=== PATIENT | female | born 1980 | race Caucasian/White ===

== ENCOUNTER 2020-04-28 15:58 | Inpatient (IN) | payer BC ==
[~2020-04-28] VITALS: Ht 154.9 cm; Wt 92.2 kg
[2020-04-28] VITALS (7 sets, daily range): BP systolic 121–162; BP diastolic 70–90
[2020-04-28] MEDS ORDERED: IODIXANOL 320 MG/ML 100 ML VIAL. IART ONE (16:15)
[2020-04-28] MEDS ORDERED: LIDOCAINE 1% Multi-Dose 20 ML VIAL. INJ ONE (16:15)
[2020-04-28] MEDS ORDERED: fentaNYL PF VIAL 100 MCG/2 ML VIAL IV ONE (16:15)
[2020-04-28] MEDS ORDERED: MIDAZOLAM HCL/PF 2 MG/2 ML VIAL. IV ONE (16:15)
[2020-04-28] MEDS ORDERED: NITROGLYCERIN 200 MCG/2 ML SYRINGE FOR CATH/VASC LAB. ONE ×2 (16:23→16:37)
[2020-04-28] MEDS ORDERED: CONTRAST GIVEN. MC PRN (16:30)
--- NOTE | 2020-04-28 16:37 | PDOC1 ---
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 Dyslipidemia. 2. Prior history of tobacco abuse. 3. Coronary artery disease, status post PCI to the proximal circumflex and proximal RCA in the past. SOCIAL HISTORY: The patient has a daughter and a son. She denies any illicit drug use. FAMILY HISTORY: Notable for coronary artery disease. Cardiovascular: CAD Pulmonary: No pertinent hx GI: No pertinent hx Heme/Onc: No pertinent hx ENT: No pertinent hx Renal/: No pertinent hx Dermatology: No pertinent hx Family History Family History: High Cholestrol Social History Smoke: Quit (QUIT LAST YEAR) ALCOHOL: none Drugs: None Current Medications Current Medications Current Medications Heparin Sodium/ Sodium Chloride (HEPARIN for ARTERIAL LINE FLUSH) 1,000 unit 1X ONCE IART Last administered on 04/28/20at 16:15; Start 04/28/20 at 16:15; Stop 04/28/20 at 16:17; Status DC Heparin Sodium/ Sodium Chloride (HEPARIN for ARTERIAL LINE FLUSH) 1,000 unit 1X ONCE IART Last administered on 04/28/20at 16:15; Start 04/28/20 at 16:15; Stop 04/28/20 at 16:17; Status DC Midazolam HCl (Versed) 2 mg 1X ONCE IV ; Start 04/28/20 at 16:15; Stop 04/28/20 at 16:17; Status DC Fentanyl Citrate (Fentanyl 2ml Vial) 100 mcg 1X ONCE IV ; Start 04/28/20 at 16:15; Stop 04/28/20 at 16:17; Status DC Iodixanol (Visipaque 320) 100 ml 1X ONCE IART ; Start 04/28/20 at 16:15; Stop 04/28/20 at 16:17; Status DC Lidocaine HCl (Lidocaine 1% 20ml Vial) 20 ml 1X ONCE INJ ; Start 04/28/20 at 16:15; Stop 04/28/20 at 16:17; Status DC Info (CONTRAST GIVEN -- Rx MONITORING) 1 each PRN DAILY PRN MC SEE COMMENTS; Start 04/28/20 at 16:30; Stop 04/30/20 at 16:29 Nitroglycerin (Nitroglycerin) 200 mcg STK-MED ONCE .ROUTE ; Start 04/28/20 at 16:23; Stop 04/28/20 at 16:23; Status DC Nitroglycerin (Nitroglycerin) 200 mcg 1X ONCE IART ; Start 04/28/20 at 16:45; Stop 04/28/20 at 16:46 Allergies Allergies: Coded Allergies: No Known Drug Allergies (Unverified , 04/28/20) ROS Review of System 14 pt ros otherwise neg General: No: Chills, Night Sweats, Fatigue, Malaise, Appetite, Other PSYCHOLOGICAL ROS: No: Anxiety, Behavioral Disorder, Concentration difficultie, Decreased libido, Depression, Disorientation, Hallucinations, Hostility, Irritablity, Memory difficulties, Mood Swings, Obsessive thoughts, Physical abus e, Sexual abuse, Sleep disturbances, Suicidal ideation, Other Eyes: No Blurry vision, No Decreased vision, No Double vision, No Dry eyes, No Excessive tearing, No Eye Pain, No Itchy Eyes, No Loss of vision, No Photophobia, No Scotomata, No Uses contacts, No Uses glasses, No Other HEENT: No: Heacaches, Visual Changes, Hearing change, Nasal congestion, Nasal discharge, Oral lesions, Sinus pain, Sore Throat, Epistaxis, Sneezing, Snoring, Tinnitus, Vertigo, Vocal changes, Other ALLERGY AND IMMUNOLOGY: No: Hives, Insect Bite Sensitivity, Itchy/Watery Eyes, Nasal Congestion, Post Nasal Drip, Seasonal Allergies, Other Hematological and Lymphatic: No: Bleeding Problems, Blood Clots, Blood Transfusions, Brusing, Night Sweats, Pallor, Swollen Lymph Nodes, Other ENDOCRINE: No: Breast Changes, Galactorrhea, Hair Pattern Changes, Hot Flashes, Malaise/lethargy, Mood Swings, Palpitations, Polydipsia/polyuria, Skin Changes, Temperature Intolerance, Unexpected Weight Changes, Other Respiratory: No: Cough, Hemoptysis, Orthopnea, Pleuritic Pain, Shortness of breath, SOB with excertion, Sputum Changes, Stridor, Tachypnea, Wheezing, Other Cardiovascular: yes Chest Pain; No Palpitations, No Orthopnea, No Paroxysmal Noc. Dyspnea, No Edema, No Lt Headedness, No Other Gastrointestinal: Yes Nausea; No Vomiting, No Abdominal Pain, No Diarrhea, No Constipation, No Melena, No Hematochezia, No Other Genitourinary: No Dysuria, No Frequency, No Incontinence, No Hematuria, No Retention, No Discharge, No Urgency, No Pain, No Flank Pain, No Other, No , No , No , No , No , No , No Musculoskeletal: No Gait Disturbance, No Joint Pain, No Joint Stiffness, No Joint Swelling, No Muscle Pain, No Muscular Weakness, No Pain In:, No Swelling In:, No Other Neurological: No Behavorial Changes, No Bowel/Bladder ControlChng, No Confusion, No Dizziness, No Gait Disturbance, No Headaches, No Impaired Coor d/balance, No Memory Loss, No Numbness/Tingling, No Seizures, No Speech Problems, No Tremors, No Visual Changes, No Weakness, No Other Skin: No Dry Skin, No Eczema, No Hair Changes, No Lumps, No Mole Changes, No Mottling, No Nail Changes, No Pruritus, No Rash, No Skin Lesion Changes, No Other, No Acne Physical Exam General: Alert, Oriented X3, Cooperative, No acute distress HEENT: Atraumatic, PERRLA, EOMI, Mucous membr. moist/pink Lungs: Clear to auscultation, Normal air movement Heart: RRR, no thrills, no rubs, no gallops Cardiovascular: S1 Breasts: Not examined Abdomen: Normal bowel sounds, Soft, No tenderness, No hepatosplenomegaly Rectal Exam: not examined PELVIC: Examination not indicated Extremities: No clubbing, No cyanosis, No edema Skin: No significant lesion Neuro: Normal speech, Sensation intact, Cranial nerves 3-12 NL Psych/Mental Status: Mental status NL, Mood NL VTE Prophylaxis Ordered VTE Prophylaxis Devices: No VTE Pharmacological Prophylaxi: Yes Assessment/Plan Assessment/Plan IMPRESSION ACUTE STEMI LUCY graft anastomosis to the LAD has a 90% anastomotic stenosis 80% modoc LAD lesion. The LAD is small in caliber, approximately less than 2 mm in size. Left circumflex has a patent stent with moderate 50% disease diffusely. MORBID OBESITY remote tobacco abuse plan admit ICU CARDIOLOGY CONSULT consier [facility] Justicifation of Admission Dx: Justifications for Admission: Justification of Admission Dx: Yes Angina: Symp at Rest [place]: Acute NSTEMI RHODA CHAMPAGNE MD Apr 28, 2020 16:37
[2020-04-28] MEDS ORDERED: NITROGLYCERIN 200 MCG/2 ML SYRINGE FOR CATH/VASC LAB. IART ONE (16:45)
[2020-04-28] MEDS ORDERED: fentaNYL PF VIAL 100 MCG/2 ML VIAL ONE ×2 (17:03→17:14)
[2020-04-28] MEDS ORDERED: MIDAZOLAM HCL/PF 2 MG/2 ML VIAL. ONE (17:14)
[2020-04-28] MEDS ORDERED: LIDOCAINE 1% Multi-Dose 20 ML VIAL. ONE (17:47)
[2020-04-28] MEDS ORDERED: IODIXANOL 320 MG/ML 100 ML VIAL. ONE (17:47)
[2020-04-28] MEDS ORDERED: HEPARIN for ARTERIAL LINE 1,500 ML ONE (17:48)
--- NOTE | 2020-04-28 18:11 | CONS ---
DATE OF CONSULTATION: 04/28/2020 REASON FOR CONSULTATION: ST-elevation myocardial infarction. CONSULTING PHYSICIAN: Dr. Peralta. HISTORY OF PRESENT ILLNESS: The patient is a pleasant 39-year-old woman who presented to [facility] due to worsening chest discomfort. Her initial EKG in the EMS and at the facility revealed a lateral ST elevation with inferior reciprocal depressive changes and due to concern for an acute infarct, she was transferred emergently to the [facility]. Verbal informed consent was obtained from the patient. She was emergently taken to the lab animal technician and diagnostic coronary angiogram and bypass angiography was performed. In speaking with the patient, she apparently had bypass surgery approximately 9 days ago at [facility]. It was a triple vessel bypass. This information was obtained on an emergency basis from the ER clinicians at [facility]. The patient apparently was having some chest discomfort and she took nitroglycerin several weeks ago and then was seen by her primary care physician who had suggested that she be seen in the ER due to her history of a prior MT and recent nitroglycerin use. Ultimately, she stayed at [facility] for approximately a week or so and underwent 3-vessel bypass. She was felt to have vessels too small to be stented. Since discharge from the hospital, she has been doing fairly well up until today's presentation. PAST MEDICAL HISTORY: 1. Dyslipidemia. 2. Prior history of tobacco abuse. 3. Coronary artery disease, status post PCI to the proximal circumflex and proximal RCA in the past. SOCIAL HISTORY: The patient has a daughter and a son. She denies any illicit drug use. FAMILY HISTORY: Notable for coronary artery disease. ALLERGIES: NO KNOWN DRUG ALLERGIES. PHYSICAL EXAMINATION: VITAL SIGNS: Afebrile, heart rate 100, blood pressure 164/87, respirations 18, O2 saturation 95% on 2 liters. GENERAL: She was alert and oriented, in mild distress from a chest pain. HEAD AND NECK: Unremarkable. CARDIAC: Regular rate and rhythm without any obvious murmurs, rubs or gallops. LUNGS: Clear to auscultation anteriorly. SKIN: She had a midline well-healed incision on the chest. ABDOMEN: Soft. EXTREMITIES: 2+ radial and 1+ pedal pulses. NEUROLOGIC: No focal deficits. MUSCULOSKELETAL: No obvious trauma. DIAGNOSTIC STUDIES: EKG demonstrates lateral [address] elevations in I and aVL with [address]-segment depression in II, III and aVF. Coronary angiography demonstrates a patent RCA stent without any significant right coronary artery disease. Left main is a large caliber vessel. LAD has mild luminal irregularities in the proximal and mid segment without any focal stenosis. The LUCY graft anastomosis to the LAD has a 90% anastomotic stenosis and distal to the anastomosis, there is an 80% nome LAD lesion. The LAD is small in caliber, approximately less than 2 mm in size. Left circumflex has a patent stent with moderate 50% disease diffusely. The first obtuse marginal is patent with a vein graft to the first obtuse marginal also being patent with sluggish flow. IMPRESSION: 1. Acute lateral ST segment elevation, likely secondary to first diagonal vein graft occlusion. Although this vein could not be identified on aortography and multiple attempts at engaging it with a catheter. 2. Overall, her coronary anatomy does not appear to have warranted coronary artery bypass surgery at this time, but it is unclear what her anatomy was prior to presentation and previous to her bypass. 3. Hypertension. 4. Dyslipidemia. RECOMMENDATIONS: Continue home aspirin and Plavix. We will continue her heparin drip overnight. Right groin sheath will remain in place in case we need to emergently reassess her for any reason. We will obtain a previous coronary angiography films and make a determination tomorrow whether she would benefit from angioplasty/stent placement of her LAD. This was discussed with the patient and her family. She is in stable, but critical condition. Thank you for this consultation. SKIP PALMER MD DR: ELIGIO/diana JOB#: [id number] / [id number] JOE
[2020-04-28] MEDS ORDERED: METO25TA4 PO (18:16)
[2020-04-28] MEDS ORDERED: CLOP75TA PO (18:16)
[2020-04-28] MEDS ORDERED: AMIO200T4 PO (18:19)
[2020-04-28] MEDS ORDERED: ASPI-630 PO (18:19)
[2020-04-28] MEDS ORDERED: ATOR10TA60 PO (18:19)
[2020-04-28] MEDS ORDERED: HYDR-2763 PO (18:19)
[2020-04-28] MEDS ORDERED: NITROGLYCERIN PREMIX 250 ML IV PRN (19:00)
[2020-04-28] MEDS ORDERED: C.DIFF MED SCREEN BY RX. MC ONE (19:30)
[2020-04-28] MEDS: CYCLOBENZAPRINE 10 MG TABLET. PO PRN (19:40)
[2020-04-28] MEDS: ONDANSETRON PF 4 MG/2 ML VIAL. IVP PRN (19:48)
--- NOTE | 2020-04-28 20:00 | NUR ---
Patient has right femoral arterial line in for potential returned to cardiac lab assistant for intervention. BP documentation will be under vital signs intervention and not arterial line intervention to avoid double charting. Addendum: 04/28/20 at 2302 by SELENA DUONG RN Amended: Links added.
[2020-04-28] MEDS: IV NORMAL SALINE 1000ML BAG 1,000 ML IV SCH (20:16)
[2020-04-28] MEDS ORDERED: ZOLPIDEM 5 MG TABLET. PO PRN (20:30)
[2020-04-28] MEDS ORDERED: 0.9 % SODIUM CHLORIDE 10 ML DISP.SYRIN. IV PRN (20:30)
[2020-04-28] MEDS ORDERED: ACETAMINOPHEN 325 MG TABLET. PO PRN (20:30)
[2020-04-28] MEDS ORDERED: ONDANSETRON PF 4 MG/2 ML VIAL. IV PRN (20:30)
[2020-04-28] MEDS ORDERED: LORazepam 0.5 MG TABLET PO PRN (20:30)
[2020-04-28] MEDS ORDERED: ALBUTEROL SULFATE 2.5 MG/3 ML NEBU. NEB PRN (20:30)
[2020-04-28] MEDS ORDERED: DOCUSATE SODIUM 100 MG CAPSULE. PO PRN (20:30)
[2020-04-28] MEDS ORDERED: guaiFENesin ORAL 200 MG/10 ML LIQUID. PO PRN (20:30)
[2020-04-28] MEDS ORDERED: HEPARIN for IV BOLUS 10,000 UNIT/10 ML VIAL. IV PRN (21:00)
[2020-04-28] MEDS ORDERED: HEPARIN 25,000UTS/250ML PREMIX 250 ML IV PRN (21:00)
[2020-04-28] MEDS ORDERED: ATORVASTATIN CALCIUM 10 MG TABLET. PO SCH (21:00)
[2020-04-28] MEDS ORDERED: PROCHLORPERAZINE 5 MG TABLET. PO PRN (21:30)
[2020-04-28] MEDS: METOPROLOL TART IMMED RELEASE 25 MG TABLET. PO SCH (22:00)
[2020-04-28] MEDS: PROCHLORPERAZINE 10 MG/2 ML VIAL. IV PRN (22:14)
[2020-04-28] MEDS: HYDROcodone/APAP 7.5/325MG 1 TAB TABLET PO PRN (23:47)
[2020-04-29] VITALS (15 sets, daily range): BP systolic 138–169; BP diastolic 76–90
--- NOTE | 2020-04-29 02:46 | NUR ---
Tele monitoring and Nitro gtt being managed by VEE Herron.
[2020-04-29 05:02] LABS: BASO # 0.1 x10^3/uL (0.0-0.2); BASO % 0 % (0-3); EOS # 0.1 x10^3/uL (0.0-0.7); EOS % 0 % (0-3); HEMATOCRIT 29.3 % (36.0-47.0); LYMPH # 1.9 x10^3/uL (1.0-4.8); LYMPH % 13 % (24-48); MEAN CORPUSCULAR HEMOGLOBIN 30 pg (25-35); MEAN CORPUSCULAR HGB CONC 34 g/dL (31-37); MEAN CORPUSCULAR VOLUME 87 fL (79-100); MONO % 7 % (0-9); NEUT # 11.5 x10^3/uL (1.8-7.7); NEUT % 79 % (31-73); PLATELET COUNT 525 x10^3/uL (140-400); RED BLOOD COUNT 3.36 x10^6/uL (3.50-5.40); RED CELL DISTRIBUTION WIDTH 14.4 % (11.5-14.5); WHITE BLOOD COUNT 14.5 x10^3/uL (4.0-11.0)
[2020-04-29 05:19] LABS: ALBUMIN 2.8 g/dL (3.4-5.0); ALBUMIN/GLOBULIN RATIO 0.7 (1.0-1.7); CALCIUM 8.1 mg/dL (8.5-10.1); CREATININE 0.8 mg/dL (0.6-1.0); POTASSIUM 4.1 mmol/L (3.5-5.1); TOTAL BILIRUBIN 0.2 mg/dL (0.2-1.0); TOTAL PROTEIN 6.7 g/dL (6.4-8.2)
[2020-04-29] MEDS: HYDROcodone/APAP 7.5/325MG 1 TAB TABLET PO PRN ×3 (05:38→13:46)
[2020-04-29] MEDS: IV NORMAL SALINE 1000ML BAG 1,000 ML IV SCH (07:39)
[2020-04-29] MEDS ORDERED: CLOPIDOGREL BISULFATE 75 MG TABLET PO SCH (09:00)
[2020-04-29] MEDS ORDERED: ASPIRIN CHEWABLE 81 MG TABLET. PO SCH (09:00)
[2020-04-29] MEDS ORDERED: ENOXAPARIN 40 MG/0.4 ML SYRINGE. SQ SCH (09:00)
[2020-04-29] MEDS ORDERED: AMIODARONE HCL 200 MG TABLET. PO SCH (09:00)
[2020-04-29] MEDS: CYCLOBENZAPRINE 10 MG TABLET. PO PRN (09:22)
[2020-04-29] MEDS: METOPROLOL TART IMMED RELEASE 25 MG TABLET. PO SCH (09:25)
[2020-04-29] MEDS: ONDANSETRON PF 4 MG/2 ML VIAL. IVP PRN (09:28)
--- NOTE | 2020-04-29 10:31 | PDOC ---
PROGRESS NOTES History of Present Illness History of Present Illness DISCHARGE DX Assessment/Plan IMPRESSION ACUTE STEMI LUCY graft anastomosis to the LAD has a 90% anastomotic stenosis 80% platinum LAD lesion. The LAD is small in caliber, approximately less than 2 mm in size. Left circumflex has a patent stent with moderate 50% disease diffusely. MORBID OBESITY remote tobacco abuse plan admit ICU CARDIOLOGY CONSULT consider intervention after review, of prev cath from [facility] transfer TO [facility] CARDIOLOGY TODAY D/C PLANNING 26 MIN d/w rn Vitals Vitals Vital Signs Date Time Temp Pulse Resp B/P (MAP) Pulse Ox O2 Delivery O2 Flow Rate FiO2 04/29/20 10:15 115 22 160/89 (112) 95 Room Air 04/29/20 09:23 2.0 04/29/20 09:00 98.5 98.5 Physical Exam General: Alert, Oriented X3, Cooperative, No acute distress Heart: Regular rate Lungs: Clear Abdomen: Normal bowel sounds, Soft, No tenderness, No hepatosplenomegaly Extremities: No clubbing, No cyanosis, No edema Skin: No significant lesion Labs LABS Laboratory Tests Test 04/28/20 18:50 04/29/20 04:55 Troponin I Quantitative 2.878 ng/mL (0.000-0.055) 9.231 ng/mL (0.000-0.055) White Blood Count 14.5 x10^3/uL (4.0-11.0) Red Blood Count 3.36 x10^6/uL (3.50-5.40) Hemoglobin 10.0 g/dL (12.0-15.5) Hematocrit 29.3 % (36.0-47.0) Mean Corpuscular Volume 87 fL (79-100) Mean Corpuscular Hemoglobin 30 pg (25-35) Mean Corpuscular Hemoglobin Concent 34 g/dL (31-37) Red Cell Distribution Width 14.4 % (11.5-14.5) Platelet Count 525 x10^3/uL (140-400) Neutrophils (%) (Auto) 79 % (31-73) Lymphocytes (%) (Auto) 13 % (24-48) Monocytes (%) (Auto) 7 % (0-9) Eosinophils (%) (Auto) 0 % (0-3) Basophils (%) (Auto) 0 % (0-3) Neutrophils # (Auto) 11.5 x10^3/uL (1.8-7.7) Lymphocytes # (Auto) 1.9 x10^3/uL (1.0-4.8) Monocytes # (Auto) 1.0 x10^3/uL (0.0-1.1) Eosinophils # (Auto) 0.1 x10^3/uL (0.0-0.7) Basophils # (Auto) 0.1 x10^3/uL (0.0-0.2) Heparin Anti-Xa Act, Unfractionated 0.40 IU/mL (0.30-0.70) Sodium Level 136 mmol/L (136-145) Potassium Level 4.1 mmol/L (3.5-5.1) Chloride Level 104 mmol/L (98-107) Carbon Dioxide Level 22 mmol/L (21-32) Anion Gap 10 (6-14) Blood Urea Nitrogen 13 mg/dL (7-20) Creatinine 0.8 mg/dL (0.6-1.0) Estimated GFR (Cockcroft-Gault) 79.0 BUN/Creatinine Ratio 16 (6-20) Glucose Level 126 mg/dL (70-99) Calcium Level 8.1 mg/dL (8.5-10.1) Total Bilirubin 0.2 mg/dL (0.2-1.0) Aspartate Amino Transf (AST/SGOT) 83 U/L (15-37) Alanine Aminotransferase (ALT/SGPT) 8 U/L (14-59) Alkaline Phosphatase 96 U/L (46-116) Total Protein 6.7 g/dL (6.4-8.2) Albumin 2.8 g/dL (3.4-5.0) Albumin/Globulin Ratio 0.7 (1.0-1.7) Comment Review of Relevant I have reviewed the following items lelo (where applicable) has been applied. Labs Laboratory Tests Test 04/28/20 18:50 04/29/20 04:55 Troponin I Quantitative 2.878 ng/mL (0.000-0.055) 9.231 ng/mL (0.000-0.055) White Blood Count 14.5 x10^3/uL (4.0-11.0) Red Blood Count 3.36 x10^6/uL (3.50-5.40) Hemoglobin 10.0 g/dL (12.0-15.5) Hematocrit 29.3 % (36.0-47.0) Mean Corpuscular Volume 87 fL (79-100) Mean Corpuscular Hemoglobin 30 pg (25-35) Mean Corpuscular Hemoglobin Concent 34 g/dL (31-37) Red Cell Distribution Width 14.4 % (11.5-14.5) Platelet Count 525 x10^3/uL (140-400) Neutrophils (%) (Auto) 79 % (31-73) Lymphocytes (%) (Auto) 13 % (24-48) Monocytes (%) (Auto) 7 % (0-9) Eosinophils (%) (Auto) 0 % (0-3) Basophils (%) (Auto) 0 % (0-3) Neutrophils # (Auto) 11.5 x10^3/uL (1.8-7.7) Lymphocytes # (Auto) 1.9 x10^3/uL (1.0-4.8) Monocytes # (Auto) 1.0 x10^3/uL (0.0-1.1) Eosinophils # (Auto) 0.1 x10^3/uL (0.0-0.7) Basophils # (Auto) 0.1 x10^3/uL (0.0-0.2) Heparin Anti-Xa Act, Unfractionated 0.40 IU/mL (0.30-0.70) Sodium Level 136 mmol/L (136-145) Potassium Level 4.1 mmol/L (3.5-5.1) Chloride Level 104 mmol/L (98-107) Carbon Dioxide Level 22 mmol/L (21-32) Anion Gap 10 (6-14) Blood Urea Nitrogen 13 mg/dL (7-20) Creatinine 0.8 mg/dL (0.6-1.0) Estimated GFR (Cockcroft-Gault) 79.0 BUN/Creatinine Ratio 16 (6-20) Glucose Level 126 mg/dL (70-99) Calcium Level 8.1 mg/dL (8.5-10.1) Total Bilirubin 0.2 mg/dL (0.2-1.0) Aspartate Amino Transf (AST/SGOT) 83 U/L (15-37) Alanine Aminotransferase (ALT/SGPT) 8 U/L (14-59) Alkaline Phosphatase 96 U/L (46-116) Total Protein 6.7 g/dL (6.4-8.2) Albumin 2.8 g/dL (3.4-5.0) Albumin/Globulin Ratio 0.7 (1.0-1.7) Laboratory Tests Test 04/28/20 18:50 04/29/20 04:55 Troponin I Quantitative 2.878 ng/mL (0.000-0.055) 9.231 ng/mL (0.000-0.055) White Blood Count 14.5 x10^3/uL (4.0-11.0) Red Blood Count 3.36 x10^6/uL (3.50-5.40) Hemoglobin 10.0 g/dL (12.0-15.5) Hematocrit 29.3 % (36.0-47.0) Mean Corpuscular Volume 87 fL (79-100) Mean Corpuscular Hemoglobin 30 pg (25-35) Mean Corpuscular Hemoglobin Concent 34 g/dL (31-37) Red Cell Distribution Width 14.4 % (11.5-14.5) Platelet Count 525 x10^3/uL (140-400) Neutrophils (%) (Auto) 79 % (31-73) Lymphocytes (%) (Auto) 13 % (24-48) Monocytes (%) (Auto) 7 % (0-9) Eosinophils (%) (Auto) 0 % (0-3) Basophils (%) (Auto) 0 % (0-3) Neutrophils # (Auto) 11.5 x10^3/uL (1.8-7.7) Lymphocytes # (Auto) 1.9 x10^3/uL (1.0-4.8) Monocytes # (Auto) 1.0 x10^3/uL (0.0-1.1) Eosinophils # (Auto) 0.1 x10^3/uL (0.0-0.7) Basophils # (Auto) 0.1 x10^3/uL (0.0-0.2) Heparin Anti-Xa Act, Unfractionated 0.40 IU/mL (0.30-0.70) Sodium Level 136 mmol/L (136-145) Potassium Level 4.1 mmol/L (3.5-5.1) Chloride Level 104 mmol/L (98-107) Carbon Dioxide Level 22 mmol/L (21-32) Anion Gap 10 (6-14) Blood Urea Nitrogen 13 mg/dL (7-20) Creatinine 0.8 mg/dL (0.6-1.0) Estimated GFR (Cockcroft-Gault) 79.0 BUN/Creatinine Ratio 16 (6-20) Glucose Level 126 mg/dL (70-99) Calcium Level 8.1 mg/dL (8.5-10.1) Total Bilirubin 0.2 mg/dL (0.2-1.0) Aspartate Amino Transf (AST/SGOT) 83 U/L (15-37) Alanine Aminotransferase (ALT/SGPT) 8 U/L (14-59) Alkaline Phosphatase 96 U/L (46-116) Total Protein 6.7 g/dL (6.4-8.2) Albumin 2.8 g/dL (3.4-5.0) Albumin/Globulin Ratio 0.7 (1.0-1.7) Medications Current Medications Heparin Sodium/ Sodium Chloride (HEPARIN for ARTERIAL LINE FLUSH) 1,000 unit 1X ONCE IART Last administered on 04/28/20at 16:15; Start 04/28/20 at 16:15; Stop 04/28/20 at 16:17; Status DC Heparin Sodium/ Sodium Chloride (HEPARIN for ARTERIAL LINE FLUSH) 1,000 unit 1X ONCE IART Last administered on 04/28/20at 16:15; Start 04/28/20 at 16:15; Stop 04/28/20 at 16:17; Status DC Midazolam HCl (Versed) 2 mg 1X ONCE IV Last administered on 04/28/20at 16:06; Start 04/28/20 at 16:15; Stop 04/28/20 at 16:17; Status DC Fentanyl Citrate (Fentanyl 2ml Vial) 100 mcg 1X ONCE IV Last administered on 04/28/20at 16:06; Start 04/28/20 at 16:15; Stop 04/28/20 at 16:17; Status DC Iodixanol (Visipaque 320) 100 ml 1X ONCE IART Last administered on 04/28/20at 16:55; Start 04/28/20 at 16:15; Stop 04/28/20 at 16:17; Status DC Lidocaine HCl (Lidocaine 1% 20ml Vial) 20 ml 1X ONCE INJ Last administered on 04/28/20at 16:15; Start 04/28/20 at 16:15; Stop 04/28/20 at 16:17; Status DC Info (CONTRAST GIVEN -- Rx MONITORING) 1 each PRN DAILY PRN MC SEE COMMENTS; Start 04/28/20 at 16:30; Stop 04/30/20 at 16:29 Nitroglycerin (Nitroglycerin) 200 mcg STK-MED ONCE .ROUTE ; Start 04/28/20 at 16:23; Stop 04/28/20 at 16:23; Status DC Nitroglycerin (Nitroglycerin) 200 mcg 1X ONCE IART Last administered on 04/28/20at 16:45; Start 04/28/20 at 16:45; Stop 04/28/20 at 16:46; Status DC Nitroglycerin (Nitroglycerin) 200 mcg STK-MED ONCE .ROUTE ; Start 04/28/20 at 16:37; Stop 04/28/20 at 16:37; Status DC Fentanyl Citrate (Fentanyl 2ml Vial) 100 mcg STK-MED ONCE .ROUTE ; Start 04/28/20 at 17:03; Stop 04/28/20 at 17:04; Status DC Fentanyl Citrate (Fentanyl 2ml Vial) 100 mcg STK-MED ONCE .ROUTE ; Start 04/28/20 at 17:14; Stop 04/28/20 at 17:14; Status DC Midazolam HCl (Versed) 2 mg STK-MED ONCE .ROUTE ; Start 04/28/20 at 17:14; Stop 04/28/20 at 17:14; Status DC Iodixanol (Visipaque 320) 100 ml STK-MED ONCE .ROUTE ; Start 04/28/20 at 17:47; Stop 04/28/20 at 17:48; Status DC Lidocaine HCl (Lidocaine 1% 20ml Vial) 20 ml STK-MED ONCE .ROUTE ; Start 04/28 at 17:47; Stop 04/28/20 at 17:48; Status DC Heparin Sodium/ Sodium Chloride 1,500 ml @ As Directed STK-MED ONCE .ROUTE ; Start 04/28/20 at 17:48; Stop 04/28/20 at 17:48; Status DC Nitroglycerin/ Dextrose 250 ml @ 1.5 mls/hr CONT PRN IV SEE I/O RECORD Last administered on 04/28/20at 19:12; Start 04/28/20 at 19:00 Cyclobenzaprine HCl (Flexeril) 10 mg PRN Q6HRS PRN PO MUSCLE SPASMS Last administered on 04/29/20 09:22; Start 04/28/20 at 19:15 Pharmacy Consult (C.diff Med Screen By Rx) 1 each 1X ONCE MC ; Start 04/28/20 at 19:30; Stop 04/28/20 at 19:31; Status DC Ondansetron HCl (Zofran) 4 mg PRN Q6HRS PRN IVP NAUSEA/VOMITING Last administered on 04/29/20at 09:28; Start 04/28/20 at 19:45 Sodium Chloride (Normal Saline Flush) 3 ml QSHIFT PRN IV AFTER MEDS AND BLOOD DRAWS; Start 04/28/20 at 20:30 Sodium Chloride 1,000 ml @ 100 mls/hr Q10H IV Last administered on 04/29/20at 07:39; Start 04/28/20 at 20:16 Ondansetron HCl (Zofran) 4 mg PRN Q4HRS PRN IV NAUSEA/VOMITING; Start 04/28/20 at 20:30; Status UNV Zolpidem Tartrate (Ambien) 5 mg PRN QHS PRN PO INSOMNIA Last administered on 04/28/20at 23:51; Start 04/28/20 at 20:30 Acetaminophen (Tylenol) 650 mg PRN Q4HRS PRN PO TEMP OVER 100.4F OR MILD PAIN; Start 04/28/20 at 20:30 Docusate Sodium (Colace) 100 mg PRN BID PRN PO HARD STOOLS; Start 04/28/20 at 20:30 Albuterol Sulfate (Ventolin Neb Soln) 2.5 mg PRN Q4HRS PRN NEB SHORTNESS OF BREATH; Start 04/28/20 at 20:30 Guaifenesin (Robitussin) 200 mg PRN Q4HRS PRN PO COUGH; Start 04/28/20 at 20:30 Lorazepam (Ativan) 0.5 mg PRN Q4HRS PRN PO ANXIETY / AGITATION; Start 04/28/20 at 20:30 Enoxaparin Sodium (Lovenox 40mg Syringe) 40 mg Q24H SQ ; Start 04/29/20 at 09:00; Stop 04/28/20 at 20:56; Status DC Heparin Sodium/ Dextrose 250 ml @ 0 mls/hr CONT PRN IV PER PROTOCOL Last administered on 04/28/20at 22:13; Start 04/28/20 at 21:00 Heparin Sodium (Porcine) (Heparin Sodium) 2,350 unit PRN Q6HRS PRN IV FOR UFH LEVEL LESS THAN 0.2; Start 04/28/20 at 21:00 Amiodarone HCl (Cordarone) 200 mg DAILY PO Last administered on 04/29/20 09:23; Start 04/29/20 at 09:00 Aspirin (Aspirin Chewable) 81 mg DAILY PO Last administered on 04/29/20 09:23; Start 04/29/20 at 09:00 Atorvastatin Calcium (Lipitor) 10 mg QHS PO Last administered on 04/28/20at 22:00; Start 04/28/20 at 21:00 Clopidogrel Bisulfate (Plavix) 75 mg DAILY PO Last administered on 04/29/20 09:23; Start 04/29/20 at 09:00 Acetaminophen/ Hydrocodone Bitart (Lortab 7.5/325) 1 tab PRN Q4HRS PRN PO MODERATE PAIN, SEVERE PAIN Last administered on 04/29/20at 09:23; Start 04/29/20 at 00:00 Metoprolol Tartrate (Lopressor) 12.5 mg BID PO Last administered on 04/29/20at 09:25; Start 04/28/20 at 21:00 Prochlorperazine Maleate (Compazine) 5 mg PRN Q4HRS PRN PO NAUSEA/VOMITING; Start 04/28/20 at 21:30; Stop 04/28/20 at 21:37; Status DC Prochlorperazine Edisylate (Compazine) 10 mg PRN Q4HRS PRN IV NAUSEA/VOMITING Last administered on 04/28/20at 22:14; Start 04/28/20 at 21:45 Active Scripts Active Reported Amiodarone Hcl 200 Mg Tablet 1 Tab PO DAILY Atorvastatin Calcium 10 Mg Tablet 1 Tab PO DAILY Hydrocodone-Acetamin 7.5-325 (Hydrocodone/Acetaminophen) 1 Each Tablet 1 Each PO Q4HRS Aspirin 81 Mg Tab.chew 1 Tab PO DAILY Clopidogrel (Clopidogrel Bisulfate) 75 Mg Tablet 1 Tab PO DAILY Metoprolol Tartrate 25 Mg Tablet 0.5 Tab PO BID Vitals/I & O Vital Sign - Last 24 Hours 04/28/20 04/28/20 04/28/20 04/28/20 16:06 17:13 18:15 19:00 Temp 97.9 97.9 Pulse 88 90 92 Resp 18 17 15 B/P (MAP) 131/90 (104) 139/88 (105) Pulse Ox 99 98 98 O2 Delivery Nasal Cannula Room Air Room Air O2 Flow Rate 2.0 04/28/20 04/28/20 04/28/20 04/28/20 20:00 20:00 20:00 20:01 Pulse 86 86 Resp 16 B/P (MAP) 121/70 (87) 136/74 (94) 136/74 (94) Pulse Ox 95 O2 Delivery Room Air Room Air 04/28/20 04/28/20 04/28/20 04/28/20 20:11 21:00 22:00 23:47 Temp 99.1 99.1 Pulse 84 99 Resp 18 20 B/P (MAP) 144/76 (98) 124/62 Pulse Ox 95 95 O2 Delivery Room Air Room Air 04/28/20 04/29/20 04/29/20 04/29/20 23:53 00:13 00:50 03:00 Temp 98.9 98.9 Pulse 91 90 90 Resp 22 24 B/P (MAP) 162/90 (114) 169/88 (115) 154/84 (107) Pulse Ox 90 95 O2 Delivery Room Air Room Air 04/29/20 04/29/20 04/29/20 04/29/20 04:00 04:00 05:00 05:38 Pulse 90 92 94 Resp 20 20 24 B/P (MAP) 150/84 (106) 158/84 (108) 166/86 (112) Pulse Ox 95 94 92 O2 Delivery Room Air Room Air Room Air 04/29/20 04/29/20 04/29/20 04/29/20 05:49 06:30 06:53 07:00 Temp 98.5 98.5 Pulse 95 106 106 Resp 26 26 24 B/P (MAP) 156/86 (109) 149/80 (103) 154/78 (103) Pulse Ox 96 95 95 O2 Delivery Room Air Room Air Room Air Room Air 04/29/20 04/29/20 04/29/20 04/29/20 07:25 08:00 08:00 09:00 Temp 98.5 98.5 Pulse 100 106 95 Resp 16 B/P (MAP) 148/85 (106) 148/85 (106) 145/78 (100) Pulse Ox 95 95 O2 Delivery Room Air Room Air Room Air 04/29/20 04/29/20 04/29/20 04/29/20 09:23 09:23 09:25 10:15 Pulse 106 96 115 Resp 22 B/P (MAP) 148/85 145/79 160/89 (112) Pulse Ox 95 95 O2 Delivery Room Air Room Air O2 Flow Rate 2.0 Intake and Output 04/28/20 04/28/20 04/29/20 15:00 23:00 07:00 Intake Total 240 ml 1108 ml Output Total 0 ml 610 ml Balance 240 ml 498 ml RHODA CHAMPAGNE MD Apr 29, 2020 10:31
--- NOTE | 2020-04-29 10:35 | SNU/HH DC ---
DISCHARGE ORDERS DISCHARGE INFORMATION: DISCHARGE DATE: Apr 29, 2020 CONDITION ON DISCHARGE: Stable CODE STATUS: Code Status: Full SENIOR CARE: SNF STAY <30 DAYS: No HOSPICE: HOSPICE: No HOSPICE EVAL & TREAT: No LTAC: ADMIT TO LTAC: No POST DISCHARGE ORDERS: ACTIVITY ORDERS: Bedrest today DIET AFTER DISCHARGE: NPO WOUND/INCISION CARE: Other, see below CHECKS AFTER DISCHARGE: CHECKS AFTER DISCHARGE: Check blood press - daily FOLLOW-UP: PHYSICIAN FOLLOW-UP: TRANSFER TO [facility] NOW TREATMENT/EQUIPMENT ORDERS: INFUSION EQUIPMENT NEEDED: IV Line DISCHARGE MEDICATIONS: Home Meds Reported Medications Amiodarone Hcl (AMIODARONE HCL) 200 Mg Tablet, 1 TAB PO DAILY for , #90 TAB 1 Refill 04/28/20 Atorvastatin Calcium (ATORVASTATIN CALCIUM) 10 Mg Tablet, 1 TAB PO DAILY for , #30 TAB 5 Refills 04/28/20 Hydrocodone/Acetaminophen (Hydrocodone-Acetamin 7.5-325) 1 Each Tablet, 1 EACH PO Q4HRS for pain, TAB 04/28/20 Aspirin (ASPIRIN) 81 Mg Tab.chew, 1 TAB PO DAILY for , #30 TAB 3 Refills 04/28/20 Clopidogrel Bisulfate (CLOPIDOGREL) 75 Mg Tablet, 1 TAB PO DAILY for , #90 TAB 1 Refill 04/28/20 Metoprolol Tartrate (METOPROLOL TARTRATE) 25 Mg Tablet, 0.5 TAB PO BID for , #180 TAB 1 Refill 04/28/20 RHODA CHAMPAGNE MD Apr 29, 2020 10:35
--- NOTE | 2020-04-29 10:44 | NUR ---
SS following for discharge planning. SS reviewed pt chart and discussed with pt RN. Pt is from home and is currently on room air. Cardiology requesting transfer to . Dr. Macario reported that he spoke with Dr. Nieves at . SS contacted transfer team and spoke with Bhupinder in the transfer team, . SS made request for transfer. Requested clinical faxed to at fax [phone]. SS made request for images to be clouded to . Packet, transfer form, and ambulance form on the chart. SS will continue to follow for discharge planning.
[2020-04-29] MEDS ORDERED: MIDAZOLAM HCL/PF 2 MG/2 ML VIAL. IV ONE (10:45)
[2020-04-29] MEDS ORDERED: fentaNYL PF VIAL 100 MCG/2 ML VIAL IM ONE (10:45)
--- NOTE | 2020-04-29 12:43 | NUR ---
SS following up with discharge planning. SS received phone contact from Bhupinder at transfer center, , stating that pt has been accepted for transfer but there bed situation is very tight at this time. They reported that they would contact SS when bed has been assigned. Pt's RN notified. SS will continue to follow for discharge planning.
--- NOTE | 2020-04-29 13:08 | PDOC ---
SELAM AGUILAR [employer]ATE 04/29/20 1308: CARDIO Progress Notes Date and Time Date of Service 04/29/2020 Time of Evaluation 1210 Subjective Subjective: No Chest Pain, No shortness of breath, No Palpitations Vitals Vitals Vital Signs Date Time Temp Pulse Resp B/P (MAP) Pulse Ox O2 Delivery O2 Flow Rate FiO2 04/29/20 12:05 94 18 138/76 (96) 95 Room Air 2.0 04/29/20 11:17 98.0 98.0 Weight Weight [ ] Input and Output Intake and Output Intake and Output 04/29/20 07:00 Intake Total 1348 ml Output Total 610 ml Balance 738 ml Intake Oral 740 ml Blood Product IV Normal Saline Flush 608 ml Output Urine Total 610 ml Stool Total 0 ml Laboratory Labs Laboratory Tests Test 04/28/20 18:50 04/29/20 04:55 Troponin I Quantitative 2.878 ng/mL (0.000-0.055) 9.231 ng/mL (0.000-0.055) White Blood Count 14.5 x10^3/uL (4.0-11.0) Red Blood Count 3.36 x10^6/uL (3.50-5.40) Hemoglobin 10.0 g/dL (12.0-15.5) Hematocrit 29.3 % (36.0-47.0) Mean Corpuscular Volume 87 fL (79-100) Mean Corpuscular Hemoglobin 30 pg (25-35) Mean Corpuscular Hemoglobin Concent 34 g/dL (31-37) Red Cell Distribution Width 14.4 % (11.5-14.5) Platelet Count 525 x10^3/uL (140-400) Neutrophils (%) (Auto) 79 % (31-73) Lymphocytes (%) (Auto) 13 % (24-48) Monocytes (%) (Auto) 7 % (0-9) Eosinophils (%) (Auto) 0 % (0-3) Basophils (%) (Auto) 0 % (0-3) Neutrophils # (Auto) 11.5 x10^3/uL (1.8-7.7) Lymphocytes # (Auto) 1.9 x10^3/uL (1.0-4.8) Monocytes # (Auto) 1.0 x10^3/uL (0.0-1.1) Eosinophils # (Auto) 0.1 x10^3/uL (0.0-0.7) Basophils # (Auto) 0.1 x10^3/uL (0.0-0.2) Heparin Anti-Xa Act, Unfractionated 0.40 IU/mL (0.30-0.70) Sodium Level 136 mmol/L (136-145) Potassium Level 4.1 mmol/L (3.5-5.1) Chloride Level 104 mmol/L (98-107) Carbon Dioxide Level 22 mmol/L (21-32) Anion Gap 10 (6-14) Blood Urea Nitrogen 13 mg/dL (7-20) Creatinine 0.8 mg/dL (0.6-1.0) Estimated GFR (Cockcroft-Gault) 79.0 BUN/Creatinine Ratio 16 (6-20) Glucose Level 126 mg/dL (70-99) Calcium Level 8.1 mg/dL (8.5-10.1) Total Bilirubin 0.2 mg/dL (0.2-1.0) Aspartate Amino Transf (AST/SGOT) 83 U/L (15-37) Alanine Aminotransferase (ALT/SGPT) 8 U/L (14-59) Alkaline Phosphatase 96 U/L (46-116) Total Protein 6.7 g/dL (6.4-8.2) Albumin 2.8 g/dL (3.4-5.0) Albumin/Globulin Ratio 0.7 (1.0-1.7) Physical Exam HEENT: Neck Supple W Full Motion Chest: Symmetric LUNGS: Clear to Auscultation Heart: RRR (SR) Abdomen: Soft N/T Extremities: No Edema, No Calf Tenderness Neurology: alert, oriented, follow commands Other Exams right groin arteriotomy site intact, no swelling or hematoma. Post of cath removal. Neurovascular status to bilateral LE intact. Assessment Assessment 1. Acute lateral STEMI: possibly due to first diagonal vein graft occlusion, failed multiple attempt to engage. see report 2. CAD: past CABG 3. HTN: controlled 4. HLP Recommendations 1. Hemodynamically stable. NTG drip in place. Would possibly benefit from angioplasty/stent placement of her LAD. [facility] transfer pending for today 2. Continue ASA/plavix. Secondary prevention measures. 3. Discussed with pt. Pt is currently CP free. Dulcefation of Admission Dx: Justifications for Admission: Justification of Admission Dx: Yes Angina: Symp at Rest [place]: Acute NSTEMI SKIP PALMER MD 04/29/20 1742: CARDIO Progress Notes Plan Plan Patient seen and examined. Agree with above nurse practitioner note. No acute events overnight. Her chest pain is improved. Her case was discussed with cardiology. Given her bypass less than 2 weeks ago with risk of possible perforation or coronary rupture with the balloon angioplasty given her small calcific vessels and difficult coronary anastomosis and lack of surgical backup at this facility she will be transferred to for consideration of balloon angioplasty. Supportive care for now. Awaiting transfer. SELAM AGUILAR APRN Apr 29, 2020 13:08 SKIP PALMER MD Apr 29, 2020 17:42
--- NOTE | 2020-04-29 13:12 | CARD ---
MR#: [id number] Date of Study: 04/28/2020 Ordering Physician: SKIP MACARIO, Referring Physician: SKIP MACARIO, Tech: MACARIO CARTER APPROVED REPORT Technologist: MACARIO CARTER Nurse: Mitra Rutledge RN Procedure(s) performed: Flouro Time: 7.6 min Dose: 147.91 Gycm2 Contrast total: 190 Visi Sedation Time: 69 min LHC, Coronary angiography, bypass angiography HISTORY : The patient is a 39 year-old female with a history of . INDICATION The indication(s) include : STEMI . [facility] Clinical Frailty Scale [facility] Clinical Frailty Scale: Moderately Frail Heart Failure Heart Failure: Yes If Yes, Newly Diagnosed: No If Yes, HF Type: Systolic If Yes, NYHA Class: Class II PROCEDURE NARRATIVE Clinical scenario: 39-year-old woman with a recent bypass surgery less than 2 weeks ago presented to the [facility] with lateral ST segment elevation with inferior reciprocal changes in the setting the cardia c catheterization laboratory was activated and the patient was emergently taken to the cardiac cathet erization lab. Verbal informed consent was obtained from the patient. Procedure details: The right groin was prepped and draped in usual sterile fashion. Under 2% lidocaine local anesthesia a 6 Croatian sheath was placed in the right common femoral artery. Next, diagnostic angiography was p erformed with a JL4 and JR4 catheters. Bypass angiography was performed with a JR4 and LUCY catheters . Left ventriculography and aortography was performed with a pigtail catheter. Findings: Aorta 160/80 LVEDP 18 Coronary angiography: Left main is a large-caliber vessel with normal angiographic appearance LAD is a moderate caliber vessel in the proximal segment with a proximal 40 to 50% stenosis. There i s a 80% stenosis distal to the LUCY touchdown likely iatrogenic in nature from recent bypass First and second diagonals are small caliber vessels with ostial 90% stenoses. Left circumflex is a moderate caliber vessel with mild to moderate diffuse 40 to 50% stenosis. There is a patent stent in the proximal to mid segment. OM1 is a moderate caliber vessel without any significant obstructive disease RCA is a moderate caliber dominant vessel with a patent proximal stent. The mid and distal vessel gibson s no significant disease Bypass angiography: JUAREZ to the LAD has a distal anastomotic stenosis of 90%. This was not improved with nitroglycerin t reatment. SVG to first diagonal is not found on selective catheter injection and aortography SVG to OM1 is patent with sluggish flow. Conclusion 1. Mild acute diastolic heart failure 2. Mild LV dysfunction with ejection fraction of 40 to 45% with apical akinesis 3. Two-vessel coronary artery disease with patent circumflex and RCA stents 4. 2 of 3 patent bypass grafts with JUAREZ anastomotic stenosis at the level of the LAD. Recommendations 1. Given very recent bypass less than 2 weeks ago and anastomotic stenosis balloon angioplasty would be high risk for possible coronary rupture given the small vessel size. 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 Signed by : Skip Macario, Electronically Approved : 04/29/2020 13:11:47
[2020-04-29 13:29] LABS: CHOLESTEROL/HDL RATIO 5.4
[2020-04-29] MEDS: PROCHLORPERAZINE 10 MG/2 ML VIAL. IV PRN (13:46)
--- NOTE | 2020-04-29 13:49 | NUR ---
SS following up with discharge planning. contacted SS with bed assignment. Bed#[id number]. Report# [phone]. Pt will discharge today and go to at 1500 via [facility] ambulance, . Pt's RN notified.
--- NOTE | 2020-04-29 13:50 | NUR ---
Transferring patient to [facility] per EMS. Report given to VEE Lorenzo. Awaits EMS arrival.
[2020-04-29] MEDS ORDERED: NITROGLYCERIN OINT 1 GM PACKET. TP SCH (14:30)
--- NOTE | 2020-04-29 15:07 | NUR ---
Patient off unit per EMS to [facility].
[2020-04-29] MEDS ORDERED: ATORVASTATIN CALCIUM 40 MG TABLET. PO SCH (21:00)
== END 2020-04-29 15:10 | disposition short-term general hospital (02) | DRG 280 ==
LOC: 2 SOUTH 15:58 → 1 WEST ICU 18:02
PROVIDERS: ADMIT Family Medicine; ATTEND Family Medicine
PROC: 4A023N7 Measurement of Cardiac Sampling and Pressure, Left Heart, Percutaneous Approach (ICD-10-PCS; principal; 2020-04-28)
PROC: B2111ZZ Fluoroscopy of Multiple Coronary Arteries using Low Osmolar Contrast (ICD-10-PCS; 2020-04-28)
PROC: B2151ZZ Fluoroscopy of Left Heart using Low Osmolar Contrast (ICD-10-PCS; 2020-04-28)
PROC: B2181ZZ Fluoroscopy of Left Internal Mammary Bypass Graft using Low Osmolar Contrast (ICD-10-PCS; 2020-04-28)
PROC: B2131ZZ Fluoroscopy of Multiple Coronary Artery Bypass Grafts using Low Osmolar Contrast (ICD-10-PCS; 2020-04-28)
DX: T82.858A Stenosis of other vascular prosthetic devices, implants and grafts, initial encounter (principal); I50.31 Acute diastolic (congestive) heart failure; I21.29 ST elevation (STEMI) myocardial infarction involving other sites; I11.0 Hypertensive heart disease with heart failure; E78.5 Hyperlipidemia, unspecified; E66.01 Morbid (severe) obesity due to excess calories; Y83.2 Surgical operation with anastomosis, bypass or graft as the cause of abnormal reaction of the patient, or of later complication, without mention of misadventure at the time of the procedure; I25.10 Atherosclerotic heart disease of native coronary artery without angina pectoris; Z82.49 Family history of ischemic heart disease and other diseases of the circulatory system; I25.2 Old myocardial infarction; Z87.891 Personal history of nicotine dependence; Z95.1 Presence of aortocoronary bypass graft; Y92.89 Other specified places as the place of occurrence of the external cause; Z68.38 Body mass index [BMI] 38.0-38.9, adult; Z84.89 Family history of other specified conditions
CPT/HCPCS: 36415; 80053; 80061; 84484; 85025; 85520; 93459; 93567; 99152; 99153; C1769; C1892; J0780; J1644; J2250; J2405; J3010; J3490; J7030; Q9967; G0378